=== PATIENT | female | born 1980 | race Caucasian/White ===

== ENCOUNTER 2021-02-09 01:13 | Emergency (ER) | payer OTHER | END 2021-02-09 05:00 | disposition home or self-care (01) | LOC: FER 01:13 | DX: S01.81XA Laceration without foreign body of other part of head, initial encounter (principal); S63.501A Unspecified sprain of right wrist, initial encounter; S16.1XXA Strain of muscle, fascia and tendon at neck level, initial encounter; M25.472 Effusion, left ankle; Z79.891 Long term (current) use of opiate analgesic; W19.XXXA Unspecified fall, initial encounter; W22.03XA Walked into furniture, initial encounter; Y92.009 Unspecified place in unspecified non-institutional (private) residence as the place of occurrence of the external cause | CPT/HCPCS: 72040; 73110; 73610; 96372; J1885 ==